=== PATIENT | male | born 1985 | race Caucasian/White ===

== ENCOUNTER 2016-06-16 09:57 | Emergency (ER) | payer BC ==
[~2016-06-16] VITALS: Ht 185.4 cm; Wt 90.5 kg
[2016-06-16 13:09] VITALS: BP 121/80; PULSE 65; TEMP 97.3
[2016-06-16] MEDS ORDERED: ATARAX 25MG25 MG/TAB PO (13:10)
== END 2016-06-16 13:09 | disposition home or self-care (01) ==
LOC: COL.ER 09:57
DX: R21 Rash and other nonspecific skin eruption (principal)
CPT/HCPCS: J1200; J2930; J7030